=== PATIENT | female | born 1995 | race Caucasian/White ===

== ENCOUNTER 2019-05-02 22:39 | Emergency (ER) | payer OTHER ==
[~2019-05-02] VITALS: Ht 165.1 cm; Wt 87.8 kg
[2019-05-02 22:41] VITALS: BP 150/82
[2019-05-02] MEDS ORDERED: dexameTHASONE 20 MG/5 ML VIAL (J1100) IV ONE (23:15)
[2019-05-02] MEDS ORDERED: LORazepam 2 MG/ML VIAL (J2060) IV STA (23:28)
[2019-05-02] MEDS ORDERED: LORazepam 2 MG/ML VIAL (J2060) As Ordered ONE (23:49)
[2019-05-03 00:06] LABS: MEAN CORPUSCULAR HEMOGLOBIN 31.2 pg (27.0-33.0); MEAN CORPUSCULAR HGB CONC 34.2 g/dl (32.0-36.5); MEAN CORPUSCULAR VOLUME 91.1 fl (80.0-96.0); PLATELET COUNT, AUTOMATED 220 10^3/uL (150-450); RED BLOOD COUNT 4.17 10^6/uL (4.00-5.40)
[2019-05-03 00:10] LABS: BLOOD UREA NITROGEN 11 MG/DL (7-18); CALCIUM LEVEL 8.5 MG/DL (8.5-10.1); CARBON DIOXIDE LEVEL 29 MEQ/L (21-32); CHLORIDE LEVEL 107 MEQ/L (98-107); CREATININE FOR GFR 0.77 MG/DL (0.55-1.30); GLOMERULAR FILTRATION RATE > 60.0 (>60); GLUCOSE, FASTING 91 MG/DL (70-100); POTASSIUM SERUM 4.2 MEQ/L (3.5-5.1); SODIUM LEVEL 140 MEQ/L (136-145)
[2019-05-03 00:20] LABS: HCG, SERUM QUALITATIVE NEGATIVE (NEGATIVE)
--- NOTE | 2019-05-03 01:35 | REPVR ---
PROCEDURE INFORMATION: Exam: MR Cervical Spine Without Contrast Exam date and time: 05/03/2019 1:23 AM Age: 23 years old Clinical indication: Condition or disease; Other: C2 lateral mass FX; Additional info: ? C2 FX TECHNIQUE: Imaging protocol: Multiplanar magnetic resonance images of the cervical spine without intravenous contrast. COMPARISON: No relevant prior studies available. FINDINGS: There is mild reversal of the normal cervical lordosis. No spondylolisthesis or compression fractures. No marrow edema within constraints of motion artifact, noting that the lateral extent of the vertebral bodies, posterior elements, and lateral masses of C2 are incompletely imaged. No intraspinal hemorrhage. The anterior and posterior longitudinal ligaments, tectorial membrane, ligamentum flavum, interspinous and supraspinous ligaments appear intact. No prevertebral hemorrhage. Cervical spinal cord signal intensity is normal within constraints of mild motion artifact. There is no moderate or severe cervical spinal canal stenosis or neural foraminal narrowing. IMPRESSION: No evidence of major cervical spine ligamentous injury, spinal cord injury, or intraspinal hemorrhage. The questioned C2 fracture is not well seen on MRI, however the lateral extents of the vertebral bodies and C2 lateral masses are excluded from the field of imaging. This could be further assessed with cervical spine CT if not already performed elsewhere. Electronically signed by: Catracho Steward On 05/03/2019 01:34:11 AM
--- NOTE | 2019-05-03 02:14 | REPVR ---
PROCEDURE INFORMATION: Exam: CT Cervical Spine Without Contrast Exam date and time: 05/03/2019 1:53 AM Age: 23 years old Clinical indication: Neck pain; Additional info: Eval c2 per radiologist TECHNIQUE: Imaging protocol: Computed tomography images of the cervical spine without contrast. Radiation optimization: All CT scans at this facility use at least one of these dose optimization techniques: automated exposure control; mA and/or kV adjustment per patient size (includes targeted exams where dose is matched to clinical indication); or iterative reconstruction. COMPARISON: MRI-Spine,Cervical without con 05/03/2019 12:53 AM FINDINGS: Vertebrae: No fracture or subluxation is evident. C2 appears normal. Discs/Spinal canal/Neural foramina: Minimal broad-based posterior protrusion at C4-C5. No spinal or foraminal stenosis. Soft tissues: Unremarkable. Sinuses: Bilateral maxillary sinus mucosal thickening. Lungs: Lung apices are normal. IMPRESSION: 1. Minimal posterior central protrusion at C4-C5. 2. Otherwise negative CT cervical spine. No fracture or subluxation is evident and no spinal or foraminal stenosis. C2 appears normal. Electronically signed by: Ghanshyam Spivey On 05/03/2019 02:13:01 AM
== END 2019-05-03 04:12 | disposition home or self-care (01) ==
LOC: M ED 22:39
DX: S16.1XXA Strain of muscle, fascia and tendon at neck level, initial encounter (principal); X58.XXXA Exposure to other specified factors, initial encounter; Y92.89 Other specified places as the place of occurrence of the external cause; F41.9 Anxiety disorder, unspecified; F17.210 Nicotine dependence, cigarettes, uncomplicated
CPT/HCPCS: 72125; 72141; 80048; 84703; 85027; 96374; 96375; 99283; J1100; J2060

== ENCOUNTER → 2023-03-07 | Outpatient (CLI) | payer OTHER | LOC: M OUTALCOH 07:26 | PROVIDERS: ATTEND Psychiatry & Neurology Psychiatry | DX: Z03.89 Encounter for observation for other suspected diseases and conditions ruled out (principal) ==

== ENCOUNTER 2023-03-20 08:40 | Outpatient (RCR) | payer OTHER | END 2023-03-24 | LOC: M OUTALCOH 08:40 | PROVIDERS: ATTEND Psychiatry & Neurology Psychiatry | DX: F14.20 Cocaine dependence, uncomplicated (principal) ==

== ENCOUNTER → 2023-04-24 | Outpatient (RCR) | payer OTHER | LOC: M OUTALCOH 03-29 13:09 | PROVIDERS: ATTEND Psychiatry & Neurology Psychiatry | DX: F14.20 Cocaine dependence, uncomplicated (principal) ==

== ENCOUNTER → 2023-05-23 | Outpatient (RCR) | payer OTHER | LOC: M OUTALCOH 04-26 08:40 | PROVIDERS: ATTEND Psychiatry & Neurology Psychiatry | DX: F14.20 Cocaine dependence, uncomplicated (principal) | CPT/HCPCS: 90837; G0397 ==

== ENCOUNTER → 2023-06-20 | Outpatient (CLI) | payer OTHER ==
[2023-06-20 13:42] LABS: FREE T4 0.95 NG/DL (0.89-1.76); THYROID STIMULATING HORMONE 2.22 uIU/ML (0.55-4.78)
== END ==
LOC: M PLALAB 10:43
PROVIDERS: ATTEND Psychiatry & Neurology Psychiatry
DX: F43.23 Adjustment disorder with mixed anxiety and depressed mood (principal); F14.20 Cocaine dependence, uncomplicated

== ENCOUNTER 2023-06-21 10:23 | Outpatient (RCR) | payer OTHER | END 2023-06-23 | LOC: M OUTALCOH 10:23 | PROVIDERS: ATTEND Psychiatry & Neurology Psychiatry | DX: F14.20 Cocaine dependence, uncomplicated (principal) | CPT/HCPCS: G0397 ×6 ==

== ENCOUNTER 2023-07-22 16:00 | Outpatient (RCR) | payer OTHER | END 2023-07-23 | LOC: M OUTALCOH 16:00 | PROVIDERS: ATTEND Psychiatry & Neurology Psychiatry | DX: F14.20 Cocaine dependence, uncomplicated (principal) | CPT/HCPCS: G0397 ×2 ==

== ENCOUNTER 2023-08-22 08:30 | Outpatient (RCR) | payer OTHER | END 2023-08-23 | LOC: M OUTALCOH 08:30 | PROVIDERS: ATTEND Psychiatry & Neurology Psychiatry | DX: F14.20 Cocaine dependence, uncomplicated (principal) | CPT/HCPCS: G0397 ×2 ==

== ENCOUNTER 2023-09-20 14:00 | Outpatient (RCR) | payer OTHER | END 2023-09-22 | LOC: M OUTALCOH 14:00 | PROVIDERS: ATTEND Psychiatry & Neurology Psychiatry | DX: F14.20 Cocaine dependence, uncomplicated (principal) ==

== ENCOUNTER → 2023-10-23 | Outpatient (RCR) | payer OTHER | LOC: M OUTALCOH 10-02 13:58 | PROVIDERS: ATTEND Psychiatry & Neurology Psychiatry | DX: F14.20 Cocaine dependence, uncomplicated (principal) ==

== ENCOUNTER 2023-11-22 12:59 | Outpatient (RCR) | payer OTHER | END 2023-11-23 | LOC: M OUTALCOH 12:59 | PROVIDERS: ATTEND Psychiatry & Neurology Psychiatry | DX: F14.20 Cocaine dependence, uncomplicated (principal) | CPT/HCPCS: G0397 ×3 ==

== ENCOUNTER 2023-12-20 09:04 | Outpatient (RCR) | payer OTHER | END 2023-12-23 | LOC: M OUTALCOH 09:04 | PROVIDERS: ATTEND Psychiatry & Neurology Psychiatry | DX: F14.20 Cocaine dependence, uncomplicated (principal) | CPT/HCPCS: G0397 ×3 ==

== ENCOUNTER 2024-01-17 12:54 | Outpatient (RCR) | payer OTHER | END 2024-01-23 | LOC: M OUTALCOH 12:54 | PROVIDERS: ATTEND Psychiatry & Neurology Psychiatry | DX: F14.20 Cocaine dependence, uncomplicated (principal) | CPT/HCPCS: G0397 ×2 ==

== ENCOUNTER 2024-02-17 14:00 | Outpatient (RCR) | payer OTHER | END 2024-02-22 | LOC: M OUTALCOH 14:00 | PROVIDERS: ATTEND Psychiatry & Neurology Psychiatry | DX: F14.20 Cocaine dependence, uncomplicated (principal) ==

== ENCOUNTER 2024-03-09 15:03 | Outpatient (RCR) | payer OTHER | END 2024-03-24 | LOC: M OUTALCOH 15:03 | PROVIDERS: ATTEND Psychiatry & Neurology Psychiatry | DX: F14.20 Cocaine dependence, uncomplicated (principal) ==

== ENCOUNTER → 2024-11-02 | Outpatient (CLI) | payer OTHER | LOC: M OUTALCOH 07:34 | PROVIDERS: ATTEND Psychiatry & Neurology Psychiatry | DX: F14.20 Cocaine dependence, uncomplicated (principal); F17.200 Nicotine dependence, unspecified, uncomplicated ==

== ENCOUNTER 2024-11-16 08:40 | Outpatient (RCR) | payer OTHER | END 2024-11-22 | LOC: M OUTALCOH 08:40 | PROVIDERS: ATTEND Psychiatry & Neurology Psychiatry | DX: F14.20 Cocaine dependence, uncomplicated (principal); F17.200 Nicotine dependence, unspecified, uncomplicated ==

== ENCOUNTER 2024-12-21 08:40 | Outpatient (RCR) | payer OTHER | END 2024-12-22 | LOC: M OUTALCOH 08:40 | PROVIDERS: ATTEND Psychiatry & Neurology Psychiatry | DX: F14.20 Cocaine dependence, uncomplicated (principal); F17.200 Nicotine dependence, unspecified, uncomplicated ==

== ENCOUNTER 2025-01-21 09:00 | Outpatient (RCR) | payer OTHER | END 2025-01-22 | LOC: M OUTALCOH 09:00 | PROVIDERS: ATTEND Psychiatry & Neurology Psychiatry | DX: F14.20 Cocaine dependence, uncomplicated (principal); F17.200 Nicotine dependence, unspecified, uncomplicated ==

== ENCOUNTER 2025-02-17 15:00 | Outpatient (RCR) | payer OTHER | END 2025-02-21 | LOC: M OUTALCOH 15:00 | PROVIDERS: ATTEND Psychiatry & Neurology Psychiatry | DX: F14.20 Cocaine dependence, uncomplicated (principal); F17.200 Nicotine dependence, unspecified, uncomplicated ==

== ENCOUNTER 2025-03-22 16:00 | Outpatient (RCR) | payer OTHER | END 2025-03-24 | LOC: M OUTALCOH 16:00 | PROVIDERS: ATTEND Psychiatry & Neurology Psychiatry | DX: F14.20 Cocaine dependence, uncomplicated (principal); F17.200 Nicotine dependence, unspecified, uncomplicated ==